=== PATIENT | male | born 1985 | race Caucasian/White ===

== ENCOUNTER → 2017-08-07 | Outpatient (CLI) | payer BC | END | disposition home or self-care (01) | LOC: C.LABPBG 14:55 | PROVIDERS: ATTEND Physician Assistant | DX: T14.8XXA Other injury of unspecified body region, initial encounter (principal); W57.XXXA Bitten or stung by nonvenomous insect and other nonvenomous arthropods, initial encounter; R14.0 Abdominal distension (gaseous); R10.9 Unspecified abdominal pain ==

== ENCOUNTER → 2017-08-13 | Outpatient (CLI) | payer BC | END | disposition home or self-care (01) | LOC: C.LABSPEC 17:00 | PROVIDERS: ATTEND Physician Assistant | DX: R10.9 Unspecified abdominal pain (principal) ==

== ENCOUNTER → 2017-08-14 | Outpatient (CLI) | payer BC ==
[2017-08-14 17:36] LABS: ALBUMIN 4.6 gm/dl (3.4-5.0); ALT/SGPT 32 U/L (12-78); AST/SGOT 21 U/L (15-37); BLOOD UREA NITROGEN 18 mg/dl (7-18); CARBON DIOXIDE 28 mmol/L (21-32); CREATININE 1.62 mg/dl (0.60-1.40); GLUCOSE 125 mg/dl (70-99); POTASSIUM 4.4 mmol/L (3.5-5.1); SODIUM 137 mmol/L (136-145)
[2017-08-14 17:39] LABS: ALKALINE PHOSPHATASE 74 U/L (45-117); TOTAL PROTEIN 7.7 gm/dl (6.4-8.2)
== END ==
LOC: C.LABPBG 12:24
PROVIDERS: ATTEND Physician Assistant
DX: R14.0 Abdominal distension (gaseous) (principal); R10.9 Unspecified abdominal pain; K92.1 Melena

== ENCOUNTER → 2017-08-28 | Outpatient (CLI) | payer BC ==
--- NOTE | 2017-08-28 11:44 | DIAGNOSTIC IMAGING REPORT ---
GALLBLADDER-ABD LIMITED CLINICAL HISTORY: R14.0 Abdominal [id number] Abdominal cramping pain TECHNIQUE: Ultrasound COMPARISON STUDY: None FINDINGS: Normal gallbladder. Common bile duct 2 mm. Liver is uniform throughout. Pancreas and right kidney are unremarkable. Right kidney is negative for hydronephrosis. IMPRESSION: Normal study The above report was generated using voice recognition software. It may contain grammatical, syntax or spelling errors. Electronically signed by: Michael Anders M.D. 08/28/2017 11:42 AM Dictated Date/Time: 08/28/2017 11:42 AM
== END | disposition home or self-care (01) ==
LOC: C.ULTR 11:04
PROVIDERS: ATTEND Physician Assistant
DX: R14.0 Abdominal distension (gaseous) (principal); R10.9 Unspecified abdominal pain

== ENCOUNTER 2024-05-11 14:46 | Observation (INO) ==
--- NOTE | 2024-05-11 15:05 | Emergency Department Note ---
ED Visit Note This patient was briefly evaluated while in triage. An abbreviated physical exam was performed. This patient is a 38-year-old Male who presents to the ED for evaluation of an anal fissure. Patient states that he was pushing a wheelbarrow up a hill and is concerned that he might have injured it more because he has had increased rectal pain. Patient also notes episodes of body aches and chills as well. Patient notes significant pain with bowel movements, hasn't been able to go. Pain with sitting, standing or walking. Has had botox injections in his fissure in the past, denies any other procedures. RESPIRATORY- Chest rise equal and symmetric, lung sounds clear throughout all chester. CARDIAC- Regular rate and rhythm, no mumur or gallops noted. ABDOMEN- Soft, generalized discomfort, notes most of his pain in his rectum. Pain is worse with standing or walking. Bowel sounds present but hypoactive in all four quadrants. No palpable mass. .
[2024-05-11 16:36] LABS: Basophils # (auto) 0.04 K/uL (0.00-0.20); Basophils % (auto) 0.3 %; Eosinophils # (auto) 0.02 K/uL (0.00-0.50); Eosinophils % (auto) 0.1 %; Hematocrit (blood only) 50.7 % (42.0-52.0); Hemoglobin 17.1 g/dl (14.0-18.0); Immature Granulocytes # (auto) 0.04 K/uL (0.01-0.20); Immature Granulocytes % (auto) 0.3 %; Lymphocytes # (auto) 1.51 K/uL (1.20-3.40); Lymphocytes % (auto) 10.1 %; Mean Corpuscular Hemoglobin 30.6 pg (25.0-34.0); Mean Corpuscular Hgb Conc 33.7 g/dL (32.0-36.0); Mean Corpuscular Volume 90.9 fL (80.0-100.0); Mean Platelet Volume 9.4 fL (9.4-12.4); Monocytes # (auto) 0.96 K/uL (0.11-0.59); Monocytes % (auto) 6.4 %; Neutrophils # (auto) 12.38 K/uL (1.40-6.50); Neutrophils % (auto) 82.8 %; Platelet Count 406 K/uL (130-400); RDW Coefficient of Variation 12.4 % (11.5-14.5); RDW Standard Deviation 41.3 fL (36.4-46.3); Red Blood Count 5.58 M/uL (4.70-6.10); White Blood Count 14.95 K/ul (4.8-10.8)
--- NOTE | 2024-05-11 16:36 | Emergency Department Note ---
History of Present Illness General Chief complaint: Rectal Pain Stated complaint: BODY CRAMPS, ANAL FISSURE, CONSTIPATION Time Seen by Provider: 05/11/24 16:33 History of Present Illness Maximum Pain Intensity: 4 This is a 38-year-old male presenting to the emergency department for evaluation of rectal pain. 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 He has followed with [facility] colorectal surgery, and has undergone Botox procedures in the past. He has been recommended an additional surgical procedure to release his sphincter, however he is concerned about the side effects of this. Patient has been with this condition his whole life. He states that 4 days ago he was moving a wheelbarrow of salt when he had an immediate acute exacerbation of his pain. He has been laying in bed and on his side to relieve symptoms. He has not had any known fever or chills. Last bowel movement was 2 days ago. He rates his current discomfort a 4/10. Home Medications Medication Instructions Recorded Confirmed Type acetaminophen 325 mg tablet 650 mg PO DAILY PRN Pain 02/01/24 05/11/24 History aspirin 81 mg chewable tablet 81 mg PO DAILY PRN Pain 02/01/24 05/11/24 History multivitamin with minerals-folic 1 tab PO DAILY 02/01/24 05/11/24 History acid 200 mcg chewable tablet (Multivitamin Gummies) omeprazole magnesium 20 mg 20 mg PO DAILY #30 tabs 04/29/24 05/11/24 Rx tablet,delayed release (Prilosec OTC) baclofen 10 mg tablet 10 mg PO HS #30 tabs 05/10/24 05/11/24 Rx Allergies Allergy/AdvReac Type Severity Reaction Status Date / Time pantoprazole Allergy Mild Chest Verified 04/29/24 15:10 tightness piperacillin [From Zosyn] Allergy Hives Verified 05/11/24 19:28 tazobactam [From Zosyn] Allergy Hives Verified 05/11/24 19:28 Past Med/Surg History Problem List (Updated 05/12/24 @ 15:57 by Anthony Armijo PA-C) Perirectal abscess (Acute) Rectal abscess Anal stenosis, congenital Anal fissure Mass of head Headache Hyperlipidemia Raynauds disease Acid reflux (Acute) Positive autoantibody screening for celiac disease (Acute) Medical History Acid reflux Anal stenosis, congenital Winters esophagus Raynaud disease History of COVID-19 "not recent"--resolved Surgical History History of surgery for anal stenosis History of esophagogastroduodenoscopy (EGD) History of colonoscopy History of wisdom tooth extraction History of lumbar surgery diskectomy Status post tooth extraction Family History Father Dementia History of rheumatic fever Parkinson disease Mother No problems noted. Sister Type 1 diabetes Grandfather (Maternal) Leukemia Aunt Lymphoma Other No family history of adverse response to anesthesia Denies family history of Ovarian cancer Prostate cancer Myocardial infarction Breast cancer Colorectal cancer Social History Smoking Status: Former smoker Tobacco Type: Cigarettes and Smokeless Tobacco (Dip or Chew) Age Started Using Tobacco: 17; Age Quit Using Tobacco: 24; packs per day: 0.25; Second Hand Exposure: No; Do You Dip or Chew Tobacco: Yes (chews (advised on policy)); Hx Alcohol Use: No Hx Substance Use: No Preferred Language: Syriac Communication Ability: Effective Visual Impairment: No Limitations Hearing Ability: Normal 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 Beliefs That Will Affect Care: None marital status: Current Living Situation: Spouse current occupational status: employed current occupation: [employer] How many Children do You have: 2 Feels Safe at Home: Yes Safety Concerns: Feels Safe At This Time Childhood Exposure to Second-Hand Smoke: Yes Diet: regular Diet Comment: regular caffeine: Yes during the past year weight has: remained stable Dental Care, Regularly: Yes Physical Activity Frequency: Daily Seatbelt Use: always Sunscreen Use: Yes Assistive Devices: None Review of Systems A total of 10 systems reviewed and were otherwise negative Physical Exam Vital Signs Vital Signs - 24 hr 05/11/24 16:24 05/11/24 17:32 05/11/24 19:03 Temperature Temperature Source Pulse Rate 78 Pulse Rate [Apical] 79 71 Pulse Rhythm [Apical] Respiratory Rate 15 17 Respiratory Effort / Characteristics Respiratory Depth Respiratory Pattern Blood Pressure [Right Arm] 139/79 123/83 Blood Pressure Mean [Right Arm] 99 96 Blood Pressure Position [Right Arm] Semi-fowlers Semi-fowlers Pulse Oximetry 99 99 Oxygen Delivery Method Room Air Room Air Oxygen Flow Rate 05/11/24 20:14 Temperature 36.7 C Temperature Source Temporal Artery Scan Pulse Rate Pulse Rate [Apical] 113 H Pulse Rhythm [Apical] Regular Respiratory Rate 12 Respiratory Effort / Characteristics Non-Labored Spontaneous Respiratory Depth Normal Respiratory Pattern Regular Blood Pressure [Right Arm] 138/92 Blood Pressure Mean [Right Arm] 107 Blood Pressure Position [Right Arm] Semi-fowlers Pulse Oximetry 97 Oxygen Delivery Method Oxymask Oxygen Flow Rate 6 VITALS: Vitals are noted on the nurse's note and reviewed by myself. Vital signs stable. GENERAL: Well-developed, well-nourished, white male, who is in no acute distress and resting comfortably. Patient is cooperative with the examination. HEAD: Normocephalic atraumatic. HEART: Regular rate and rhythm without murmurs gallops or rubs. LUNGS: Clear to auscultation bilaterally without wheezes, rales or rhonchi. No retractions or accessory muscle use. ABDOMEN: Positive normal bowel sounds x 4. Soft, nontender, without masses or organomegaly. No guarding or rebound tenderness. RECTAL: There is a small nonthrombosed hemorrhoid at roughly 12:00. Reproducible tenderness through the pilonidal space without obvious abscess MUSCULOSKELETAL: No muscle atrophy, erythema, or edema noted. Full range of motion in all extremities. Course Administered Medications Docusate Sodium (Docusate Sodium 100 Mg Cap) 100 mg PO BID [facility] Stop: 06/11/24 08:59 Last Admin: 05/12/24 09:08 Dose: 100 mg Documented By: JIMBO Enoxaparin Sodium (Enoxaparin Inj 40 Mg/0.4 Ml Syr) 40 mg SQ Q24H [facility] Stop: 06/11/24 07:59 Last Admin: 05/12/24 08:17 Dose: Not Given Documented By: JIMBO Metronidazole (Flagyl) 500 mg in 100 mls @ 100 mls/hr IV Q8H [facility]; Protocol Stop: 05/21/24 21:44 Last Infusion: 05/12/24 14:32 Dose: Infused Documented By: Admin: 05/12/24 13:31 Dose: 100 mls/hr Documented By: Infusion: 05/12/24 06:26 Dose: Infused Documented By: Admin: 05/12/24 05:26 Dose: 100 mls/hr Documented By: Infusion: 05/11/24 23:26 Dose: Infused Documented By: Admin: 05/11/24 22:26 Dose: 100 mls/hr Documented By: KEYUR Levofloxacin/Dextrose (Levaquin/D5w) 500 mg in 100 mls @ 100 mls/hr IV Q24H [facility]; Protocol Stop: 05/21/24 21:44 Last Infusion: 05/11/24 23:26 Dose: Infused Documented By: Admin: 05/11/24 22:26 Dose: 100 mls/hr Documented By: KEYUR Miscellaneous (Omeprazole: Order Awaiting Action) 1 each N/A QS [facility] Stop: 06/11/24 15:59 Last Admin: 05/12/24 15:33 Dose: Not Given Documented By: JIMBO Morphine Sulfate (Morphine Sulfate 2 Mg/Ml Carp) 2 mg IV Q3H PRN PRN Reason: Pain (1,2,3,4,5) & Pre PT Stop: 05/25/24 21:24 Last Admin: 05/12/24 07:21 Dose: 2 mg Documented By: Admin: 05/11/24 22:23 Dose: 2 mg Documented By: KEYUR Oxycodone/Acetaminophen (Oxycodone/Acetaminophen 5mg/325mg Tab) 2 tab PO Q4H PRN PRN Reason: SEVERE Pain (7,8,9,10) Stop: 05/25/24 21:24 Last Admin: 05/12/24 12:23 Dose: 2 tab Documented By: Admin: 05/12/24 02:44 Dose: 2 tab Documented By: YAMILE Discontinued Medications Acetaminophen (Acetaminophen 1000 Mg/100 Ml Iv) Confirm Administered Dose 1,000 mg IV .STK-MED ONE Stop: 05/11/24 19:24 Last Admin: 05/11/24 22:49 Dose: Not Given Documented By: KEYUR Diphenhydramine HCl (Diphenhydramine 50 Mg/Ml Vial) 25 mg IV NOW STA Stop: 05/11/24 18:05 Last Admin: 05/11/24 18:09 Dose: 25 mg Documented By: CEF Famotidine (Famotidine/Pf 20 Mg/2 Ml Vial) Confirm Administered Dose 20 mg IV .STK-MED ONE Stop: 05/11/24 19:20 Last Admin: 05/11/24 22:49 Dose: Not Given Documented By: KEYUR Fentanyl Citrate (Fentanyl Citrate Pf 100 Mcg/2 Ml Vial) 25 mcg IV Q5M PRN PRN Reason: PACU Use Only-Pain Stop: 05/12/24 02:57 Last Admin: 05/11/24 20:43 Dose: 25 mcg Documented By: Admin: 05/11/24 20:38 Dose: 25 mcg Documented By: LUIS Sodium Chloride (Nss) 1,000 mls @ 999 mls/hr IV .Q1H1M ONE Stop: 05/11/24 17:45 Last Infusion: 05/11/24 18:40 Dose: Infused Documented By: Admin: 05/11/24 17:10 Dose: 999 mls/hr Documented By: CEF Acetaminophen (Ofirmev) 1,000 mg in 100 mls @ 400 mls/hr IV NOW STA Stop: 05/11/24 16:59 Last Admin: 05/11/24 17:10 Dose: Not Given Documented By: CEF Piperacillin Sod/Tazobactam Sod (Zosyn) 4.5 gm in 100 mls @ 200 mls/hr IV NOW ONE; Protocol Stop: 05/11/24 17:37 Last Infusion: 05/11/24 18:11 Dose: Infused Documented By: Admin: 05/11/24 17:32 Dose: 200 mls/hr Documented By: CEF Ioversol (Optiray 320 100ml) 94 ml IV ONCE ONE Stop: 05/11/24 17:01 Last Admin: 05/11/24 17:01 Dose: 94 ml Documented By: ELIJAH Lidocaine/Epinephrine (Lidocaine 1%/Epinephrine 1:100,000 50 Ml Vial) Confirm Administered Dose 50 ml .ROUTE .STK-MED ONE Stop: 05/11/24 18:56 Last Admin: 05/11/24 20:00 Dose: 20 ml Documented By: CIARA Morphine Sulfate (Morphine Sulfate 4 Mg/Ml 1 Ml Carp\\Vial) 4 mg IV NOW STA Stop: 05/11/24 18:44 Last Admin: 05/11/24 19:00 Dose: 4 mg Documented By: MATIAS Ondansetron HCl (Ondansetron Inj 2 Mg/Ml 2 Ml Vial) 4 mg IV NOW STA Stop: 05/11/24 18:44 Last Admin: 05/11/24 22:48 Dose: Not Given Documented By: AMS Medical Decision Making Differential Diagnosis Differential diagnosis: Etiologies such as biliary colic, cholecystitis, hepatitis, pancreatitis, cardiac disease, pancreatitis, gastritis, peptic ulcer disease, appendicitis, cystitis, diverticulitis, mesenteric ischemia, inflammatory bowel disease, ileus, bowel obstruction, testicular/adnexal torsion, aortic pathology, shingles, as well as others were considered Laboratory Data 05/11/24 15:57 05/11/24 15:57 Lab Results 05/11/24 Range/Units 15:57 WBC 14.95 H (4.8-10.8) K/ul RBC 5.58 (4.70-6.10) M/uL Hgb 17.1 (14.0-18.0) g/dl Hct 50.7 (42.0-52.0) % MCV 90.9 (80.0-100.0) fL MCH 30.6 (25.0-34.0) pg MCHC 33.7 (32.0-36.0) g/dL RDW Std Deviation 41.3 (36.4-46.3) fL RDW Coeff of Angie 12.4 (11.5-14.5) % Plt Count 406 H (130-400) K/uL MPV 9.4 (9.4-12.4) fL Immature Gran % (Auto) 0.3 % Neut % (Auto) 82.8 % Lymph % (Auto) 10.1 % Alpine % (Auto) 6.4 % Eos % (Auto) 0.1 % Baso % (Auto) 0.3 % Neut # (Auto) 12.38 H (1.40-6.50) K/uL Lymph # (Auto) 1.51 (1.20-3.40) K/uL Alpine # (Auto) 0.96 H (0.11-0.59) K/uL Eos # (Auto) 0.02 (0.00-0.50) K/uL Baso # (Auto) 0.04 (0.00-0.20) K/uL Immature Gran # (Auto) 0.04 (0.01-0.20) K/uL Sodium 133 L (136-145) mmol/L Potassium 4.3 (3.5-5.1) mmol/L Chloride 95 L (98-107) mmol/L Carbon Dioxide 26 (21-32) mmol/L Anion Gap 12 H (3-11) BUN 19 (6-23) mg/dl Creatinine 1.25 (0.6-1.4) mg/dl Est Cr Clr Drug Dosing 79.3 ml/min eGFR 75.59 BUN/Creatinine Ratio 15.2 (10-20) Glucose 100 H (70-99(Fasting)) mg/dl Calcium 10.9 H (8.6-10.3) mg/dl Total Bilirubin 0.8 (0.2-1.0) mg/dl AST 19 (13-39) U/L ALT 12 (7-52) U/L Alkaline Phosphatase 94 (34-104) U/L Total Protein 9.9 H (6.0-8.3) gm/dl Albumin 5.7 H (3.4-5.0) gm/dl Globulin 4.2 H (2.5-4.0) gm/dl Albumin/Globulin Ratio 1.4 (0.9-2) Lipase 64 (11-82) U/L Imaging Data Radiologist's Impression: Abdomen/Pelvis CT 05/11/24 15:06 Clinical History: Rectal pain. Anal fissure Technique: Axial computed tomography images were obtained of the abdomen and pelvis after the administration of intravenous contrast. No prior CT is available for comparison. Findings: The liver is overall of normal size, attenuation, and contour with no sign of cirrhosis or significant fatty infiltration. No liver mass lesion is seen. The portal vein is patent. The gallbladder appears unremarkable. No bile duct dilatation is noted. The spleen is of normal size. No focal splenic lesion is evident. The pancreas appears normal with no sign of acute or chronic pancreatitis and no mass lesion noted. The pancreatic duct is of normal caliber. The adrenal glands appear unremarkable. No definite renal or proximal ureteral calculi are seen on this contrast-enhanced study. There is no hydronephrosis or perinephric stranding. No renal mass lesion is identified. There is a small 6 mm left renal cyst The aorta is of normal caliber. No abdominal adenopathy is seen. The stomach appears normal. There is no sign of small bowel obstruction. There is a thick-walled rim-enhancing fluid collection along the left wall of the anus, measuring 3.7 x 2.4 cm. This is consistent with an abscess. No free intraperitoneal fluid or air is identified. No distal ureteral or bladder calculi are seen. The bladder is decompressed. The iliac arteries are of normal caliber. No pelvic adenopathy is noted. The lungs bases appear clear. There is an L5 compression fracture, likely old. There are disc bulges at L4-5 and L5-S1. No focal osseous lesion is seen Impression: 1. 3.7 cm perianal abscess 2. Small left renal cyst 3. L5 compression fracture, likely old Electronically signed by Chinmay Hall 05-11-2024 5:18 PM MDM Narrative Physical exam and history were performed. Nursing notes, EMR, and Medication List were personally reviewed. No social concerns were identified as barriers to patients care. Patient appears to have rectal pain bringing him to the ER. Patient is quite uncomfortable, however physical exam is fairly unremarkable in that space. IV access was established and labs were obtained. CT scan with IV contrast was performed. Patient was ordered Tylenol, but declined. Patient's blood work is as above and was reviewed. He does have a slightly elevated white blood cell count. He does not have significant anemia or gross electrolyte imbalance. Transaminases not diagnostic. CT scan was performed and independently reviewed by myself and radiology. He does appear to have a perirectal or perianal abscess on imaging. The case was discussed with my attending. Escalation of care is necessary for the patient. I did consult general surgery, Dr. Antonio, who did evaluate the patient here in the ER for further evaluation. Ultimately Dr. Antonio will take the patient to the OR for definitive incision and drainage as this is not amenable to bedside care. Patient was given Zosyn here in the ER, and did have hives. The Zosyn was discontinued and he was given Benadryl. Please see the surgical dictation for further patient course, plan, and disposition. The chart was completed utilizing Q.ME Voice Recognition Software. Grammatical errors, random word insertions, pronoun errors, and incomplete sentences are an occasional consequence of this system due to software limitations, ambient noise, and hardware issues. Any formal questions or concerns about the content, text, or information contained within the body of this dictation should be directly addressed to the provider for clarification. Impression & Plan Perirectal abscess Discharge Plan Visit Data Chief Complaint: Rectal Pain Stated Complaint: BODY CRAMPS, ANAL FISSURE, CONSTIPATION ED Provider: Russ Gallegos ED Midlevel Provider: Anthony Armijo Discharge Problem: Perirectal abscess Patient Disposition: Admitted As Inpatient Discharge Instructions Interventions: ED Discharge Assessment Last Done: 05/11/24 19:06
[2024-05-11 16:37] LABS: Albumin Globulin Ratio 1.4 (0.9-2); Albumin Level 5.7 gm/dl (3.4-5.0); BUN Creatinine Ratio 15.2 (10-20); Bilirubin,Total 0.8 mg/dl (0.2-1.0); Calcium 10.9 mg/dl (8.6-10.3); Creatinine Clr Calc Pharmacy 79.3 ml/min; Globulin 4.2 gm/dl (2.5-4.0); Potassium 4.3 mmol/L (3.5-5.1); Total Protein 9.9 gm/dl (6.0-8.3)
[2024-05-11] MEDS: OPTIRAY 320 100ml IV ONE (17:01)
[2024-05-11] MEDS: ACETAMINOPHEN 1,000 MG/100 ML VIAL IV STA (17:10)
[2024-05-11] MEDS: SODIUM CHLORIDE 0.9% 1,000 ML IV ONE (17:10)
--- NOTE | 2024-05-11 17:18 | CT Scan Report ---
Clinical History: Rectal pain. Anal fissure Technique: Axial computed tomography images were obtained of the abdomen and pelvis after the administration of intravenous contrast. No prior CT is available for comparison. Findings: The liver is overall of normal size, attenuation, and contour with no sign of cirrhosis or significant fatty infiltration. No liver mass lesion is seen. The portal vein is patent. The gallbladder appears unremarkable. No bile duct dilatation is noted. The spleen is of normal size. No focal splenic lesion is evident. The pancreas appears normal with no sign of acute or chronic pancreatitis and no mass lesion noted. The pancreatic duct is of normal caliber. The adrenal glands appear unremarkable. No definite renal or proximal ureteral calculi are seen on this contrast-enhanced study. There is no hydronephrosis or perinephric stranding. No renal mass lesion is identified. There is a small 6 mm left renal cyst The aorta is of normal caliber. No abdominal adenopathy is seen. The stomach appears normal. There is no sign of small bowel obstruction. There is a thick-walled rim-enhancing fluid collection along the left wall of the anus, measuring 3.7 x 2.4 cm. This is consistent with an abscess. No free intraperitoneal fluid or air is identified. No distal ureteral or bladder calculi are seen. The bladder is decompressed. The iliac arteries are of normal caliber. No pelvic adenopathy is noted. The lungs bases appear clear. There is an L5 compression fracture, likely old. There are disc bulges at L4-5 and L5-S1. No focal osseous lesion is seen Impression: 1. 3.7 cm perianal abscess 2. Small left renal cyst 3. L5 compression fracture, likely old Electronically signed by Chinmay Hall 05-11-2024 5:18 PM
[2024-05-11] MEDS: PIPERACILLIN/TAZOBACTAM 4.5 GM/100 ML BAG IV ONE (17:32)
[2024-05-11] MEDS: diphenhydrAMINE 50 MG/ML VIAL IV STA (18:09)
--- NOTE | 2024-05-11 18:50 | History & Physical Report ---
Date of Service May 11, 2024 Assessment & Plan (1) Rectal abscess: (2) Perirectal abscess: Plan 38-year-old gentleman with a large perirectal abscess. I discussed the risks and benefits of a incision and drainage procedure in the operating room under anesthesia. All his questions were answered and he is agreeable to proceed. we will take him to the operating room at the earliest convenience. History of Present Illness Primary Care Provider: Christiana Sullivan DO 38-year-old with a past medical history of anal stenosis and chronic anal fissure treated with Botox presents with a 4-day history of increasing rectal pain. Worse with bowel movements. No purulence or discharge. No blood. He had chills and fevers today. CT scan demonstrates a perirectal abscess 3.7 cm in diameter. Allergies Allergy/AdvReac Type Severity Reaction Status Date / Time pantoprazole Allergy Mild Chest Verified 04/29/24 15:10 tightness Home Medications Medication Instructions Recorded Confirmed Type acetaminophen 325 mg tablet 650 mg PO DAILY PRN Pain 02/01/24 05/11/24 History aspirin 81 mg chewable tablet 81 mg PO DAILY PRN Pain 02/01/24 05/11/24 History multivitamin with minerals-folic 1 tab PO DAILY 02/01/24 05/11/24 History acid 200 mcg chewable tablet (Multivitamin Gummies) omeprazole magnesium 20 mg 20 mg PO DAILY #30 tabs 04/29/24 05/11/24 Rx tablet,delayed release (Prilosec OTC) baclofen 10 mg tablet 10 mg PO HS #30 tabs 05/10/24 05/11/24 Rx Past Med/Surg History Problem List (Updated 05/11/24 @ 18:51 by Marek Antonio MD) Perirectal abscess Rectal abscess Anal stenosis, congenital Anal fissure Mass of head Headache Hyperlipidemia Raynauds disease Acid reflux (Acute) Positive autoantibody screening for celiac disease (Acute) Medical History Acid reflux Anal stenosis, congenital Winters esophagus Raynaud disease History of COVID-19 "not recent"--resolved Surgical History History of surgery for anal stenosis History of esophagogastroduodenoscopy (EGD) History of colonoscopy History of wisdom tooth extraction History of lumbar surgery diskectomy Status post tooth extraction Family History Father Dementia History of rheumatic fever Parkinson disease Mother No problems noted. Sister Type 1 diabetes Grandfather (Maternal) Leukemia Aunt Lymphoma Other No family history of adverse response to anesthesia Denies family history of Ovarian cancer Prostate cancer Myocardial infarction Breast cancer Colorectal cancer Social History Smoking Status: Never smoker Tobacco Type: Cigarettes and Smokeless Tobacco (Dip or Chew) Age Started Using Tobacco: 17; Age Quit Using Tobacco: 24; packs per day: 0.25; Second Hand Exposure: No; Do You Dip or Chew Tobacco: Yes (chews (advised on policy)); Hx Alcohol Use: No Hx Substance Use: No Preferred Language: Mongolian Communication Ability: Effective Visual Impairment: No Limitations Hearing Ability: Normal Transportation Agent Required: No Beliefs That Will Affect Care: None marital status: Current Living Situation: Spouse current occupational status: employed current occupation: [employer] How many Children do You have: 2 Feels Safe at Home: Yes Childhood Exposure to Second-Hand Smoke: Yes Diet: regular Diet Comment: regular caffeine: Yes during the past year weight has: remained stable Dental Care, Regularly: Yes Physical Activity Frequency: Daily Seatbelt Use: always Sunscreen Use: Yes Review of Systems Review of Systems: All systems reviewed & are unremarkable except as noted in HPI & below Physical Exam Constitutional: WD/WN, vitals as above Eyes: PERRL, conjunctivae normal, anicteric sclerae Neck: trachea midline, no thyromegaly Respiratory: normal respiratory effort; no respiratory distress and no labored breathing Cardiovascular: Rate/Rhythm: regular rate and regular rhythm Gastrointestinal (Abdomen): Inspection/Auscultation: abdomen normal to inspection; abdomen not distended Percussion/Palpation: abdomen soft; abdomen nontender Pain and tenderness left perianal region; no erythema or fluctuance Skin: no rashes, warm and dry Psychiatric: A+Ox3, euthymic affect Results & Data Results & Data Vital Signs (Past 12 Hours) Vital Signs Temp Pulse Pulse Resp BP BP Pulse Ox 05/11/24 17:32 79 15 139/79 99 05/11/24 16:24 78 05/11/24 15:00 36.7 C 115 H 22 149/64 H 99 O2 Del Method 05/11/24 17:32 Room Air 05/11/24 16:24 05/11/24 15:00 Room Air Laboratory Results 05/11/24 Range/Units 15:57 WBC 14.95 H (4.8-10.8) K/ul RBC 5.58 (4.70-6.10) M/uL Hgb 17.1 (14.0-18.0) g/dl Hct 50.7 (42.0-52.0) % MCV 90.9 (80.0-100.0) fL MCH 30.6 (25.0-34.0) pg MCHC 33.7 (32.0-36.0) g/dL RDW Std Deviation 41.3 (36.4-46.3) fL RDW Coeff of Angie 12.4 (11.5-14.5) % Plt Count 406 H (130-400) K/uL MPV 9.4 (9.4-12.4) fL Immature Gran % (Auto) 0.3 % Neut % (Auto) 82.8 % Lymph % (Auto) 10.1 % [place] % (Auto) 6.4 % Eos % (Auto) 0.1 % Baso % (Auto) 0.3 % Neut # (Auto) 12.38 H (1.40-6.50) K/uL Lymph # (Auto) 1.51 (1.20-3.40) K/uL [place] # (Auto) 0.96 H (0.11-0.59) K/uL Eos # (Auto) 0.02 (0.00-0.50) K/uL Baso # (Auto) 0.04 (0.00-0.20) K/uL Immature Gran # (Auto) 0.04 (0.01-0.20) K/uL Sodium 133 L (136-145) mmol/L Potassium 4.3 (3.5-5.1) mmol/L Chloride 95 L (98-107) mmol/L Carbon Dioxide 26 (21-32) mmol/L Anion Gap 12 H (3-11) BUN 19 (6-23) mg/dl Creatinine 1.25 (0.6-1.4) mg/dl Est Cr Clr Drug Dosing 79.3 ml/min eGFR 75.59 BUN/Creatinine Ratio 15.2 (10-20) Glucose 100 H (70-99(Fasting)) mg/dl Calcium 10.9 H (8.6-10.3) mg/dl Total Bilirubin 0.8 (0.2-1.0) mg/dl AST 19 (13-39) U/L ALT 12 (7-52) U/L Alkaline Phosphatase 94 (34-104) U/L Total Protein 9.9 H (6.0-8.3) gm/dl Albumin 5.7 H (3.4-5.0) gm/dl Globulin 4.2 H (2.5-4.0) gm/dl Albumin/Globulin Ratio 1.4 (0.9-2) Lipase 64 (11-82) U/L Diagnostic Findings Clinical History: Rectal pain. Anal fissure Technique: Axial computed tomography images were obtained of the abdomen and pelvis after the administration of intravenous contrast. No prior CT is available for comparison. Findings: The liver is overall of normal size, attenuation, and contour with no sign of cirrhosis or significant fatty infiltration. No liver mass lesion is seen. The portal vein is patent. The gallbladder appears unremarkable. No bile duct dilatation is noted. The spleen is of normal size. No focal splenic lesion is evident. The pancreas appears normal with no sign of acute or chronic pancreatitis and no mass lesion noted. The pancreatic duct is of normal caliber. The adrenal glands appear unremarkable. No definite renal or proximal ureteral calculi are seen on this contrast-enhanced study. There is no hydronephrosis or perinephric stranding. No renal mass lesion is identified. There is a small 6 mm left renal cyst The aorta is of normal caliber. No abdominal adenopathy is seen. The stomach appears normal. There is no sign of small bowel obstruction. There is a thick-walled rim-enhancing fluid collection along the left wall of the anus, measuring 3.7 x 2.4 cm. This is consistent with an abscess. No free intraperitoneal fluid or air is identified. No distal ureteral or bladder calculi are seen. The bladder is decompressed. The iliac arteries are of normal caliber. No pelvic adenopathy is noted. The lungs bases appear clear. There is an L5 compression fracture, likely old. There are disc bulges at L4-5 and L5-S1. No focal osseous lesion is seen Impression: 1. 3.7 cm perianal abscess 2. Small left renal cyst 3. L5 compression fracture, likely old Electronically signed by Chinmay Hall 05-11-2024 5:18 PM
[2024-05-11] MEDS ORDERED: DEXAMETHASONE SOD INJ 4 MG/ML VIAL ONE (18:53)
[2024-05-11] MEDS ORDERED: PROPOFOL IV EMULSION 10 MG/ML 20 ML VIAL IV ONE (18:53)
[2024-05-11] MEDS ORDERED: ROCURONIUM BROMIDE 10 MG/ML 5 ML VIAL IV ONE (18:53)
[2024-05-11] MEDS ORDERED: MIDAZOLAM HCL 1 MG/ML 2ML VIAL ONE (18:53)
[2024-05-11] MEDS ORDERED: LIDOCAINE 2% 2 ML VIAL/AMP(20MG/ML) INFIL ONE (18:53)
[2024-05-11] MEDS ORDERED: ONDANSETRON INJ 2 MG/ML 2 ML VIAL ONE (18:53)
[2024-05-11] MEDS ORDERED: fentaNYL citrate PF 100 MCG/2 ML VIAL ONE ×2 (18:53→19:54)
[2024-05-11] MEDS ORDERED: ATROPINE SULFATE 0.1 MG/ML 10ML SYR IV PRN (18:57)
[2024-05-11] MEDS ORDERED: ePHEDrine sulfate 50 MG/ML AMP IV PRN (18:57)
[2024-05-11] MEDS ORDERED: ONDANSETRON INJ 2 MG/ML 2 ML VIAL IV PRN ×2 (18:57→21:25)
--- NOTE | 2024-05-11 18:57 | Anesthesiology Consultation ---
Date of Service May 11, 2024 Assessment & Plan Chart Review Chart Review: Acceptable Risk for Surgery and Patient NOT seen in Pre Admission Testing Consults Requested none History Surgery Operation Date: 05/11/24 18:45 Proposed Procedures p Roseanne Rectal Abcanderson - Marek Antonio MD Height/Weight Height: 5 ft 10 in Weight: 70 kg Allergies Allergy/AdvReac Type Severity Reaction Status Date / Time pantoprazole Allergy Mild Chest Verified 04/29/24 15:10 tightness Medications Home Medications Medication Instructions Recorded Confirmed Last Taken acetaminophen 325 mg tablet 650 mg PO DAILY PRN Pain 02/01/24 05/11/24 Unknown aspirin 81 mg chewable tablet 81 mg PO DAILY PRN Pain 02/01/24 05/11/24 Unknown multivitamin with minerals-folic 1 tab PO DAILY 02/01/24 05/11/24 Unknown acid 200 mcg chewable tablet (Multivitamin Gummies) omeprazole magnesium 20 mg 20 mg PO DAILY #30 tabs 04/29/24 05/11/24 Unknown tablet,delayed release (Prilosec OTC) baclofen 10 mg tablet 10 mg PO HS #30 tabs 05/10/24 05/11/24 Unknown Past Medical History Medical History Acid reflux Anal stenosis, congenital Winters esophagus Raynaud disease History of COVID-19 "not recent"--resolved Past Family History Family History Father Dementia History of rheumatic fever Parkinson disease Mother No problems noted. Sister Type 1 diabetes Grandfather (Maternal) Leukemia Aunt Lymphoma Other No family history of adverse response to anesthesia Denies family history of Ovarian cancer Prostate cancer Myocardial infarction Breast cancer Colorectal cancer Past Surgical History Surgical History History of surgery for anal stenosis History of esophagogastroduodenoscopy (EGD) History of colonoscopy History of wisdom tooth extraction History of lumbar surgery diskectomy Status post tooth extraction Social History Smoking Status: Never smoker Do You Dip or Chew Tobacco: Yes (chews (advised on policy)) Hx Alcohol Use: No Hx Substance Use: No substance use type: does not use Physical Exam Vital Signs Last Vital Signs Temp 36.7 C 05/11/24 15:00 Pulse 79 05/11/24 17:32 Resp 15 05/11/24 17:32 BP 139/79 05/11/24 17:32 Pulse Ox 99 05/11/24 17:32 O2 Del Method Room Air 05/11/24 17:32 Testing Laboratory Results 05/11/24 15:57 05/11/24 15:57 Electrocardiogram Date: 01/09/21 Findings: + SB @ (48)
[2024-05-11] MEDS ORDERED: SUCCINYLCHOLINE CHLORIDE 20 MG/ML 10 ML VIAL IV ONE (18:59)
[2024-05-11] MEDS: MoRPHine SULFATE 4 MG/ML 1 ML CARP\\VIAL IV STA (19:00)
[2024-05-11] MEDS: LIDOCAINE 1%/EPINEPHRINE 1:100,000 50 ML VIAL ONE (20:00)
--- NOTE | 2024-05-11 20:07 | Post Operative Brief Note ---
Immediate Post Op Note Date of Surgery May 11, 2024 Pre & Post Diagnosis Operation Date: 05/11/24 18:45 Pre-Op Diagnosis: Rectal abscess, Perirectal abscess Post-Op Diagnosis: Rectal abscess, Perirectal abscess I identified the patient and participated in the time-out.: Yes Procedure Operation Date: 05/11/24 18:45 Actual Procedures p Incision and Drainage of Perirectal Abcess(Not Applicable) - Marek Antonio MD Surgeon Marek Antonio MD Stock Room Manager None Estimated Blood Loss 10 Findings Consistent with Post-Op Diagnosis large amount of purulent fluid returned sent for culture and sensitivity
--- NOTE | 2024-05-11 20:09 | Operative Report ---
Post Operative Report Pre & Post Diagnosis Operation Date: 05/11/24 18:45 Pre-Op Diagnosis: Rectal abscess, Perirectal abscess Post-Op Diagnosis: Rectal abscess, Perirectal abscess I identified the patient and participated in the time-out.: Yes Procedure Operation Date: 05/11/24 18:45 Actual Procedures p Incision and Drainage of Perirectal Abcess(Not Applicable) - Marek Antonio MD Surgeon Marek Antonio MD Guideman None Estimated Blood Loss 10 Findings Consistent with Post-Op Diagnosis return if significant amount of purulent fluid; sent for culture and sensitivity Specimens aerobic and anaerobic culture sent Drains none Anesthesia Type General Complications none Description of Procedure patient was taken to the operating room, placed supine on the operating table. A timeout was performed, perioperative antibiotics were administered, SCD boots were placed. After adequate anesthesia and analgesia was obtained, He was placed in lithotomy position, the area was prepped and draped in the normal sterile fashion. local anesthetic was injected into and around the area of the perianal region. The abscess was identified on the left side of the perianal area around 5-4 o'clock. Rectal exam was performed and the abscess could be noted on the left side of the rectum. A cruciate incision was made with 15 blade scalpel into the abscess cavity. A large amount of purulent fluid was returned. This was sent for culture and sensitivity. The entire abscess was drained using pressure from the inside. The abscess cavity was copiously irrigated suctioned free and loculations were broken up with hemostat. The abscess cavity was packed with half-inch iodoform packing. Dressings were applied. He tolerated the procedure without complication, transferred in stable condition to the PACU. All instrument, needle, sponge counts were correct at the end of the case. I attest to the content of the Intraoperative Record and any orders documented therein. Any exceptions are noted below.
[2024-05-11] MEDS: fentaNYL citrate PF 100 MCG/2 ML VIAL IV PRN (20:38)
--- NOTE | 2024-05-11 20:45 | Anesthesiology Progress Note ---
Date of Service May 11, 2024 Anesthesia Post Procedure Vital Signs Vital Signs: Temp Pulse Pulse Resp BP BP Pulse Ox 05/11/24 20:40 159/95 H 05/11/24 20:30 91 H 14 155/75 H 98 05/11/24 20:20 101 H 18 126/78 100 05/11/24 20:14 36.7 C 113 H 12 138/92 97 05/11/24 19:03 71 17 123/83 99 05/11/24 17:32 79 15 139/79 99 05/11/24 16:24 78 05/11/24 15:00 36.7 C 115 H 22 149/64 H 99 O2 Del Method O2 Flow Rate 05/11/24 20:40 Room Air 05/11/24 20:30 Room Air 05/11/24 20:20 Oxymask 6 05/11/24 20:14 Oxymask 6 05/11/24 19:03 Room Air 05/11/24 17:32 Room Air 05/11/24 16:24 05/11/24 15:00 Room Air Pain Intensity Buttock: Pain Intensity: 6 Left Buttock: Pain Intensity: 5 Transfer of Care Handoff Completed per policy Notes Mental Status: alert / awake / arousable Patient Amnestic to Procedure: Yes Nausea / Vomiting: adequately controlled Pain: adequately controlled Airway Patency, RR, SpO2: stable & adequate BP & HR: stable & adequate Hydration State: stable & adequate Anesthetic Complications: no major complications apparent and Pt Satisfied with anesthetic care
[2024-05-11] MEDS ORDERED: diphenhydrAMINE Capsule 25 MG CAP PO PRN (21:25)
[2024-05-11] MEDS ORDERED: oxyCODONE/ACETAMINOPHEN 5mg/325mg TAB PO PRN (21:25)
[2024-05-11] MEDS ORDERED: PROMETHAZINE 12.5 MG/50.5 ML BAG IV PRN (21:25)
[2024-05-11] MEDS: MoRPHine SULFATE 2 MG/ML CARP IV PRN (22:23)
[2024-05-11] MEDS: levoFLOXacin/D5W 500 MG/100 ML BAG IV SCH (22:26)
[2024-05-11] MEDS: metroNIDAZOLE 500 MG/100 ML BAG IV SCH (22:26)
[2024-05-11] MEDS: ONDANSETRON INJ 2 MG/ML 2 ML VIAL IV STA (22:48)
[2024-05-11] MEDS: FAMOTIDINE/PF 20 MG/2 ML VIAL IV ONE (22:49)
[2024-05-11] MEDS: ACETAMINOPHEN 1000 MG/100 ML IV IV ONE (22:49)
[2024-05-12] MEDS: oxyCODONE/ACETAMINOPHEN 5mg/325mg TAB PO PRN (02:44)
[2024-05-12] MEDS: ENOXAPARIN INJ 40 MG/0.4 ML SYR SQ SCH (08:17)
--- NOTE | 2024-05-12 09:00 | Surgery Progress Note ---
Date of Service May 12, 2024 Assessment & Plan (1) Rectal abscess: (2) Perirectal abscess: Plan POD#1 avss postop pain moderate but controlled tolerating diet Plan: Likely needs 24 hours of IV antibiotics keep packing in wound today pain management stool softener BID reg diet ambulate likely discharge tomorrow am Dr. Antonio has seen patient, agrees with above. Admission and Anticipated Discharge Date Admission Date: May 11, 2024 Subjective feeling better, pain still moderate but controlled mild nausea with Percocet overnight no fevers or chills no n,v, tolerated diet urinating passing gas Physical Exam Constitutional: WD/WN, vitals as above cooperative and comfortable; no acute distress and not ill appearing Respiratory: normal respiratory effort; no respiratory distress Skin: no rashes, warm and dry Psychiatric: Orientation: alert and oriented x 3 Results & Data Vital Signs (Past 12 Hours) Vital Signs Temp Pulse Pulse Resp BP BP Pulse Ox 05/12/24 07:24 36.7 C 68 16 116/66 99 05/12/24 03:31 36.5 C 60 16 112/53 L 97 05/12/24 00:15 36.6 C 67 18 112/67 97 05/11/24 23:15 36.6 C 65 16 131/77 96 05/11/24 22:16 36.6 C 61 18 127/70 97 05/11/24 21:40 36.7 C 66 18 132/77 96 05/11/24 21:10 36.5 C 72 18 138/84 97 05/11/24 21:00 70 12 153/87 H 100 O2 Del Method 05/12/24 07:24 Room Air 05/12/24 03:31 Room Air 05/12/24 00:15 Room Air 05/11/24 23:15 Room Air 05/11/24 22:16 Room Air 05/11/24 21:40 Room Air 05/11/24 21:10 Room Air 05/11/24 21:00 Room Air Laboratory Results 05/11/24 Range/Units 15:57 WBC 14.95 H (4.8-10.8) K/ul RBC 5.58 (4.70-6.10) M/uL Hgb 17.1 (14.0-18.0) g/dl Hct 50.7 (42.0-52.0) % MCV 90.9 (80.0-100.0) fL MCH 30.6 (25.0-34.0) pg MCHC 33.7 (32.0-36.0) g/dL RDW Std Deviation 41.3 (36.4-46.3) fL RDW Coeff of Angie 12.4 (11.5-14.5) % Plt Count 406 H (130-400) K/uL MPV 9.4 (9.4-12.4) fL Immature Gran % (Auto) 0.3 % Neut % (Auto) 82.8 % Lymph % (Auto) 10.1 % [place] % (Auto) 6.4 % Eos % (Auto) 0.1 % Baso % (Auto) 0.3 % Neut # (Auto) 12.38 H (1.40-6.50) K/uL Lymph # (Auto) 1.51 (1.20-3.40) K/uL [place] # (Auto) 0.96 H (0.11-0.59) K/uL Eos # (Auto) 0.02 (0.00-0.50) K/uL Baso # (Auto) 0.04 (0.00-0.20) K/uL Immature Gran # (Auto) 0.04 (0.01-0.20) K/uL Sodium 133 L (136-145) mmol/L Potassium 4.3 (3.5-5.1) mmol/L Chloride 95 L (98-107) mmol/L Carbon Dioxide 26 (21-32) mmol/L Anion Gap 12 H (3-11) BUN 19 (6-23) mg/dl Creatinine 1.25 (0.6-1.4) mg/dl Est Cr Clr Drug Dosing 79.3 ml/min eGFR 75.59 BUN/Creatinine Ratio 15.2 (10-20) Glucose 100 H (70-99(Fasting)) mg/dl Calcium 10.9 H (8.6-10.3) mg/dl Total Bilirubin 0.8 (0.2-1.0) mg/dl AST 19 (13-39) U/L ALT 12 (7-52) U/L Alkaline Phosphatase 94 (34-104) U/L Total Protein 9.9 H (6.0-8.3) gm/dl Albumin 5.7 H (3.4-5.0) gm/dl Globulin 4.2 H (2.5-4.0) gm/dl Albumin/Globulin Ratio 1.4 (0.9-2) Lipase 64 (11-82) U/L Microbiology 05/11/24 19:55 Gram Stain - Final Rectal Abscess
[2024-05-12] MEDS: DOCUSATE SODIUM 100 MG CAP PO SCH (09:08)
[2024-05-12] MEDS: [UNRECOGNIZED DRUG - OTHER] SCH (15:33)
[2024-05-12] MEDS: BACLOFEN 10 MG TAB PO SCH (20:21)
[2024-05-13 07:48] VITALS: BP 129/71; PULSE 56; RESP 15; TEMP 97.5; O2SAT 97
[2024-05-13] MEDS: KETOROLAC 30 MG/ML VIAL IV PRN (08:36)
--- NOTE | 2024-05-13 08:36 | Discharge Summary ---
Date of Service May 13, 2024 Admission HPI Per Admitting Provider 38-year-old with a past medical history of anal stenosis and chronic anal fissure treated with Botox presents with a 4-day history of increasing rectal pain. Worse with bowel movements. No purulence or discharge. No blood. He had chills and fevers today. CT scan demonstrates a perirectal abscess 3.7 cm in diameter. Principal Diagnosis Perirectal abscess Discharge Exam Constitutional WD/WN, vitals as above cooperative and comfortable; no acute distress and not ill appearing Respiratory normal respiratory effort; no respiratory distress and no labored breathing Gastrointestinal (Abdomen) External rectal exam: There is packing present in wound, easily removed, healthy granulation tissue present, no necrosis. Tenderness to palpation. Skin no rashes, warm and dry Psychiatric A+Ox3, euthymic affect Discharge Data Allergies Allergy/AdvReac Type Severity Reaction Status Date / Time pantoprazole Allergy Mild Chest Verified 04/29/24 15:10 tightness piperacillin [From Zosyn] Allergy Hives Verified 05/11/24 19:28 tazobactam [From Zosyn] Allergy Hives Verified 05/11/24 19:28 Consultations 05/11/24 17:34 Consult General Surgery Stat Procedures Performed Operation Date: 05/11/24 18:45 Actual Procedures p Incision and Drainage of Perirectal Abcess(Not Applicable) - Marek Antonio MD Ordered Studies 05/11/24 15:06 CT abd pelvis IV con only Stat Hospital Course (1) Rectal abscess: (2) Perirectal abscess: Plan Patient was taken to operating room for incision and drainage of perirectal abscess on 05/11/2024. Patient found to have large perirectal abscess , no active fissure present. Pateint tolerated procedure without difficulty and trasnferred to med/surg floor for postoperative care. Diet advanced as tolerated , activity as tolerated, IV Levofloxacin and Flagyl were continued, pain management and antiemetics as needed, and wound care. Patient was kept postoperative for another 24 hours of IV antibiotics. Tolerated diet, bowel function returned and pain controlled. Patient was discharged home on POD # 2 in stable condition. Wound packing removed prior to discharge. Will need 10 days of oral cipro and flagyl and 1-2 week follow-up. Will also need to follow up with his colorectal surgeon. Total Time Total Time Spent Total Time Spent (In Minutes): 20 Total Time Includes: Examination of the Patient, Discharge Planning and Medication Reconciliation Discharge Plan Discharge Items Patient Disposition: Home - Self-Care Reason For Visit: POSTOP PERIRECTAL ABSCESS Discharge Diagnosis: Perirectal abscess Activity: Per Instructions section Non-emergency contact: Primary Care Provider and Surgeon Call non-emergency contact if: you have any medication questions, your pain is not controlled, you have a fever, your temperature is above 101, your wound has increased redness, your wound has increased drainage and your wound pain has increased Follow-up/Referrals: Narinder Michele CRNP [Nurse Practitioner] - Marek Antonio MD [Physician] - 05/25/24 2:30 pm Diet: Regular Addtl Attending Provider Instructions: ACTIVITY RECOMMENDATIONS: * No heavy lifting for 1 week. MEDICATIONS: Resume previous medications unless instructed otherwise by your surgeon. * Percocet 5/325 mg 1 every 4 hours, as needed for pain * Colace 100 mg 2 times per day * Extra Strength Tylenol 500 - 1000 mg every 4 hours, as needed for pain * Ibuprofen 600 mg every 6 hours, as needed for pain * Take antibiotics as prescribed: Will need to take entire 10 day course Cipro 500 mg twice a day for 10 days Metronidazole 500 mg three times a day for 10 days * Take Percocet with food to help with some nausea * Zofran as needed for nausea. Take as directed * Avoid constipation: Drink plenty of water daily. Daily Metamucil, Colace stool softener twice a day, Miralax daily as needed. SPECIAL CARE INSTRUCTIONS: * Remove dressings as needed to keep clean and dry. Change at least once a day. * Shower or sitz bath 3 times per day and after each bowel movement. * Keep area clean as much as possible. * Call the surgeon's office with any questions or concerns - (ex. temperature higher than 101 degrees F, excessive bleeding or pain). FOLLOW UP VISIT: If not already scheduled, please call the office to schedule a two week follow- up appointment. Office number Pending Studies at Discharge: Yes (culture results) Stand-Alone Forms: My [facility] [employer], Smoking Cessation Medications and DC Order Prescriptions: New ondansetron 4 mg tablet,disintegrating 4 mg PO Q6H PRN (Reason: nausea and vomiting) Qty: 10 0RF metronidazole 500 mg tablet 500 mg PO TID Qty: 30 0RF oxycodone-acetaminophen 5-325 mg tablet 1 tab PO Q4H PRN (Reason: pain) Qty: 18 0RF ciprofloxacin HCl 500 mg tablet 500 mg PO BID Qty: 20 0RF Continued baclofen 10 mg tablet 10 mg PO HS Qty: 30 2RF omeprazole magnesium [Prilosec OTC] 20 mg tablet,delayed release (DR/EC) 20 mg PO DAILY Qty: 30 2RF acetaminophen 325 mg Tablet 650 mg PO DAILY PRN (Reason: Pain) aspirin 81 mg Tablet,Chewable 81 mg PO DAILY PRN (Reason: Pain) multivit with min-folic acid [Multivitamin Gummies] 200 mcg Tablet,Chewable 1 tab PO DAILY Discharge Orders: Discharge Order (Routine); Ordered 05/13/24 Ordered By: Rosa Isela Astudillo Admission Data Admit Date/Time: 05/11/24 20:19 Attending Provider: Marek Antonio Admit Provider: Marek Antonio Primary Care Provider: Christiana Sullivan Other Providers: Marek Antonio
== END 2024-05-13 11:04 | disposition home or self-care (01) ==
LOC: ED 14:46 → 3N 19:06 → OR 19:06